=== PATIENT | female | born 1945 | race Caucasian/White ===

== ENCOUNTER → 2024-05-21 11:05 | Outpatient (REF) | payer MEDICARE, OTHER, SELFPAY | LOC: PAVMRI 11:05 | PROVIDERS: ATTENDING PHYSICIAN Anesthesiology Pain Medicine; FAMILY PHYSICIAN Internal Medicine; REFERRING PHYSICIAN Radiology Diagnostic Radiology | DX: T85.192D Other mechanical complication of implanted electronic neurostimulator of spinal cord electrode (lead), subsequent encounter (principal) | CPT/HCPCS: 72070; 72100; 72146 ==